=== PATIENT | male | born 1985 ===

== ENCOUNTER 2021-06-21 18:25 | Emergency (ER) | payer MEDICAID, MEDICARE ==
[~2021-06-21] VITALS: Ht 167.6 cm; Wt 86.4 kg
[2021-06-21 18:31] VITALS: BP 132/87
--- NOTE | 2021-06-21 18:44 | NUR ---
Patient given discharge instructions and they have confirmed that they understand the instructions. Patient ambulatory with steady gait.
== END 2021-06-21 19:14 | disposition home or self-care (01) ==
LOC: ED 19:00
DX: B34.9 Viral infection, unspecified (principal); Z20.822 Contact with and (suspected) exposure to COVID-19
CPT/HCPCS: 99283; U0003; U0005